=== PATIENT | male | born 1945 | race Caucasian/White ===

== ENCOUNTER 2017-06-11 00:34 | Emergency (ER) | payer MEDICARE, OTHER ==
[~2017-06-11] VITALS: Ht 182.9 cm; Wt 74.4 kg
[~2017-06-11 00:34] MED LIST: ASPI325 PO; ASPI81EC PO; ATEN25 PO; AZIT250 PO; DIGO.25; FISH1000 PO; FLEC100 PO; HYDACE5 PO; METO25ER PO; MULTI VIT PO; MULVITMINF PO; OXYACE5T PO; PRED20 PO; PROM25 PO; VITAMIN D PO; WARF5 PO; WARF7.5
[2017-06-11] MEDS ORDERED: WARF6 PO (02:20)
[2017-06-11] MEDS ORDERED: CYCL10 PO (03:37)
== END 2017-06-11 03:51 | disposition home or self-care (01) ==
LOC: ER 00:34
DX: M43.6 Torticollis (principal); Z88.1 Allergy status to other antibiotic agents; Z79.01 Long term (current) use of anticoagulants; Z79.899 Other long term (current) drug therapy; I48.91 Unspecified atrial fibrillation; Z87.891 Personal history of nicotine dependence
CPT/HCPCS: 96372; 99283; J1885

== ENCOUNTER 2017-10-13 11:22 | Emergency (ER) | payer MEDICARE, OTHER ==
[~2017-10-13] VITALS: Ht 182.9 cm; Wt 73.9 kg
[~2017-10-13 11:22] MED LIST changes: +CYCL10 PO; +WARF6 PO
[2017-10-13] MEDS ORDERED: Bactrim Ds Tab1 EACH PO (13:01)
== END 2017-10-13 13:16 | disposition home or self-care (01) ==
LOC: ER 11:22
DX: S61.213A Laceration without foreign body of left middle finger without damage to nail, initial encounter (principal); M54.2 Cervicalgia; W45.8XXA Other foreign body or object entering through skin, initial encounter; Z88.1 Allergy status to other antibiotic agents; Z79.899 Other long term (current) drug therapy; Z79.01 Long term (current) use of anticoagulants; I48.91 Unspecified atrial fibrillation; Z87.891 Personal history of nicotine dependence
CPT/HCPCS: 12002; 73140; 99283

== ENCOUNTER 2018-09-24 05:46 | Day surgery (SDC) | payer MEDICARE, OTHER ==
[~2018-09-24] VITALS: Ht 182.9 cm; Wt 76.7 kg
[~2018-09-24 05:46] MED LIST changes: +ASTAXANTHIN4 MG PO; +BLUEBERRY PO; +Bactrim Ds Tab1 EACH PO; +CHOL10002 PO; +CLON.5 PO; +COQ1050 MG PO; +Cod Liver Oil1 EAC2 PO; +FOLI400; +Glucosamine Co1 EAC1 PO; +IRON PO; +LUTEIN PO; +MAGNESIUM L-THREONAT PO; +VITAMIN B122500 MC1; +Vitamin B-650 MG; +[UNRECOGNIZED DRUG - OTHER]; +[UNRECOGNIZED DRUG - OTHER]; +[UNRECOGNIZED DRUG - OTHER]; +[UNRECOGNIZED DRUG - OTHER] PO
--- NOTE | 2018-09-24 07:18 | NUR ---
UP TO BATHROOM AT THIS TIME.
--- NOTE | 2018-09-24 10:39 | NUR ---
REPORT FROM ANUJ WALLS RN. PT INCISIONS X3 CDI. AT BEDSIDE.
--- NOTE | 2018-09-24 11:51 | NUR ---
PT AMBULATED AND PRACTICED RELAXING BREATHING TECHNIQUES WITH IMPROVEMENT IN BELCHING AND SP02 AT 96%. ABLE YO DRESS SELF WITH MINIMAL ASSIST. FELT COMFORTABLE TAKING PATIENT HOME. 02 SAT REMAINED GREATER THAN 95% AFTER WALKING. Patient up to Ambulate independently. Gait steady. Patient States Post-Procedure ride home has been arranged. Discharge instructions reviewed with patient. Patient verbalizes understanding. Copy given to patient to take home. Discharged via wheelchair to private car for ride home.ALL BELONGIGNS RETUNED TO PATIENT.
== END 2018-09-24 23:24 | disposition home or self-care (01) ==
LOC: ORSCMMR 05:46 → ORD 07:30 → ORSCMMR 23:24
PROVIDERS: Surgery
PROC: 0YU54JZ Supplement Right Inguinal Region with Synthetic Substitute, Percutaneous Endoscopic Approach (ICD-10-PCS; principal; 2018-09-24 07:30)
PROC: 8E0W4CZ Robotic Assisted Procedure of Trunk Region, Percutaneous Endoscopic Approach (ICD-10-PCS; principal; 2018-09-24 07:30)
PROC: 0WQF4ZZ Repair Abdominal Wall, Percutaneous Endoscopic Approach (ICD-10-PCS; principal; 2018-09-24 07:30)
DX: K40.90 Unilateral inguinal hernia, without obstruction or gangrene, not specified as recurrent (principal); K43.2 Incisional hernia without obstruction or gangrene; I48.91 Unspecified atrial fibrillation; Z79.01 Long term (current) use of anticoagulants; G47.33 Obstructive sleep apnea (adult) (pediatric); N18.9 Chronic kidney disease, unspecified; Z79.899 Other long term (current) drug therapy
CPT/HCPCS: 49650; 49654; S2900; A9270-GY; C1781; J0690; J1100; J2405; J2704; J2710; J2765; J3010; J7120

== ENCOUNTER 2021-04-12 05:49 | Day surgery (SDC) | payer MEDICARE, OTHER ==
[~2021-04-12] VITALS: Ht 180.3 cm; Wt 77.6 kg
[~2021-04-12 05:49] MED LIST changes: +POTCHL20ER PO; +TORS10 PO
--- NOTE | 2021-04-12 06:53 | NUR ---
Ambulatory in Day Surgery. History, Chart, Medications and Allergies reviewed before start of procedure. Lungs clear T/O to Auscultation. Patient confirms NPO status and agrees with scheduled surgery. Pre-Op teaching done. Pt verbalizes understanding. Patient States Post-Procedure ride home has been arranged.
--- NOTE | 2021-04-12 08:31 | NUR ---
04/12/21 0831 Ita Dial NO SPECIMEN PER DR. HERSON M.D. Chris DIAL RN
--- NOTE | 2021-04-12 09:47 | NUR ---
Dressing to procedure site clean, dry, intact with no visible drainage, swelling, erythema or bruising noted.
--- NOTE | 2021-04-12 09:47 | NUR ---
PT TOLERATING PO FLUIDS
--- NOTE | 2021-04-12 10:42 | NUR ---
PT STATES PAIN IS AT A 7 WITHOUT MOVEMENT. THIS IS TOLERABLE FOR THE PT
--- NOTE | 2021-04-12 11:09 | NUR ---
Discharge instructions reviewed with patient. Patient verbalizes understanding. Copy given to patient to take home. Discharged via wheelchair to private car for ride home.
== END 2021-04-12 11:11 | disposition home or self-care (01) ==
LOC: ORSCMMR 05:49 → ORD 07:30 → ORSCMMR 07:30
PROVIDERS: Surgery
PROC: 0WUF0JZ Supplement Abdominal Wall with Synthetic Substitute, Open Approach (ICD-10-PCS; principal; 2021-04-12 07:30)
DX: K42.9 Umbilical hernia without obstruction or gangrene (principal); I48.92 Unspecified atrial flutter; Z79.01 Long term (current) use of anticoagulants; Z95.0 Presence of cardiac pacemaker; Z87.891 Personal history of nicotine dependence; G47.33 Obstructive sleep apnea (adult) (pediatric); N18.9 Chronic kidney disease, unspecified; Z79.899 Other long term (current) drug therapy
CPT/HCPCS: A9270; C1781; J0171; J0690; J1100; J2250; J2370; J2405; J2704; J2710; J3010; J7120

== ENCOUNTER → 2023-05-08 | Outpatient (CLI) | payer MEDICARE, OTHER ==
[2023-05-08 19:50] LABS: Bilirubin, Total 0.9 mg/dL (0.1-1.0); Bun/Creatinine Ratio 26.9 (12.0-20.0); Calcium, Blood 8.8 mg/dL (8.5-10.1); Creatinine, Blood 1.45 mg/dL (0.60-1.20); Globulin, Blood 3.9 g/dL (2.2-4.0); Potassium, Blood 3.9 mmol/L (3.5-5.5); Total Protein, Blood 7.9 g/dL (6.4-8.2)
== END | disposition home or self-care (01) ==
LOC: LAB 18:21 → LAB SHORT 18:21
PROVIDERS: Family Medicine
DX: R74.01 Elevation of levels of liver transaminase levels (principal)
CPT/HCPCS: 36415; 80053

== ENCOUNTER → 2023-05-15 | Outpatient (CLI) | payer MEDICARE, OTHER ==
[2023-05-18 20:07] LABS: A/G RATIO 1.5 (1.2-2.2); CALCIUM, SERUM 9.7 mg/dL (8.6-10.2); CREATININE, SERUM 1.4 mg/dL (0.76-1.27); POTASSIUM, SERUM 4.3 mmol/L (3.5-5.2); PROTEIN, TOTAL, SERUM 7.6 g/dL (6.0-8.5)
== END | disposition home or self-care (01) ==
LOC: LAB 16:37 → LAB SHORT 16:37
PROVIDERS: Family Medicine
DX: R94.4 Abnormal results of kidney function studies (principal)
CPT/HCPCS: 80053

== ENCOUNTER → 2023-06-19 | Outpatient (CLI) | payer MEDICARE, OTHER ==
[2023-06-19 13:53] LABS: Creatinine Urine 47.9 mg/dL (27.00-270.00); Microalbumin, Urine Quant. 76.6 mg/L (0.000-20.000); Protein, Urine Quantitative 16.6 mg/dL (0.0-11.9)
== END | disposition home or self-care (01) ==
LOC: LAB SHORT 07:30 → LAB 07:30
PROVIDERS: Internal Medicine Nephrology
DX: N18.30 Chronic kidney disease, stage 3 unspecified (principal); D63.1 Anemia in chronic kidney disease; N25.81 Secondary hyperparathyroidism of renal origin; E55.9 Vitamin D deficiency, unspecified; E29.1 Testicular hypofunction; D50.9 Iron deficiency anemia, unspecified; D51.8 Other vitamin B12 deficiency anemias; R76.9 Abnormal immunological finding in serum, unspecified; R94.5 Abnormal results of liver function studies; R94.6 Abnormal results of thyroid function studies
CPT/HCPCS: 81050; 82043; 82570; 84156

== ENCOUNTER → 2023-10-26 | Outpatient (CLI) | payer MEDICARE, OTHER ==
[2023-10-26 14:17] LABS: Creatinine Urine 52.3 mg/dL (27.00-270.00); Protein, Urine Quantitative 12.4 mg/dL (0.0-11.9)
[2023-10-26 14:35] LABS: Microalbumin, Urine Quant. 48.6 mg/L (0.000-20.000)
== END | disposition home or self-care (01) ==
LOC: LAB SHORT 07:30 → LAB 07:30
PROVIDERS: Internal Medicine Nephrology
DX: N18.30 Chronic kidney disease, stage 3 unspecified (principal); D63.1 Anemia in chronic kidney disease; N25.81 Secondary hyperparathyroidism of renal origin; E55.9 Vitamin D deficiency, unspecified; E78.00 Pure hypercholesterolemia, unspecified; N40.1 Benign prostatic hyperplasia with lower urinary tract symptoms; R76.9 Abnormal immunological finding in serum, unspecified; R94.5 Abnormal results of liver function studies; R94.6 Abnormal results of thyroid function studies
CPT/HCPCS: 81050; 82043; 82570; 84156

== ENCOUNTER 2024-04-24 12:54 | Inpatient (IN) | payer MEDICARE ==
[~2024-04-24] VITALS: Ht 182.9 cm; Wt 84.2 kg
[2024-04-24] MEDS ORDERED: Furosemide 10 MG/ML 4ML Vial IV ONE (13:20)
[2024-04-24 13:38] LABS: BASOPHILS ABSOLUTE AUTO 0.08 K/mm3 (0.00-0.23); BASOPHILS PERCENT AUTO 2 % (0-2); EOSINOPHILS ABSOLUTE AUTO 0.15 K/mm3 (0.00-0.68); EOSINOPHILS PERCENT AUTO 3 % (0-6); Hematocrit 39.7 % (37.0-53.0); Hemoglobin 13.5 g/dL (13.5-17.5); IMMATURE GRAN ABSOLUTE AUTO 0.01 K/mm3 (0.00-0.10); IMMATURE GRAN PERCENT AUTO 0 % (0-1); LYMPHOCYTES ABSOLUTE AUTO 0.74 K/mm3 (0.84-5.20); LYMPHOCYTES PERCENT AUTO 14 % (21-46); MONOCYTES ABSOLUTE AUTO 0.75 K/mm3 (0.16-1.47); MONOCYTES PERCENT AUTO 15 % (4-13); Mean Corpuscular HGB 33.3 pg (26.0-34.0); Mean Corpuscular Volume 98 fL (80-100); Mean Platelet Volume 10.1 fL (9.1-12.4); NEUTROPHILS ABSOLUTE AUTO 3.44 K/mm3 (1.96-9.15); NEUTROPHILS PERCENT AUTO 67 % (41-73); Platelet Count 180 K/mm3 (150-400); RDW Coefficient Variation 16.5 % (11.7-14.2); RDW Standard Deviation 59.4 fL (35.1-46.3); Red Blood Cell Count 4.05 M/mm3 (4.30-5.90); White Blood Cell Count 5.17 K/mm3 (4.00-11.30)
[2024-04-24 13:55] LABS: Calcium, Blood 9.3 mg/dL (8.5-10.1); Creatinine, Blood 1.56 mg/dL (0.60-1.20); Potassium, Blood 3.5 mmol/L (3.5-5.5)
[2024-04-24] MEDS ORDERED: METO25 PO (15:29)
[2024-04-24] MEDS ORDERED: TORSE20 PO (15:30)
[2024-04-24] MEDS ORDERED: TORSE20 (15:30)
[2024-04-24] MEDS ORDERED: KLOR-CON M1010 MEQ PO (15:32)
[2024-04-24] MEDS ORDERED: TRELEGY ELLIPT1 EACH (15:33)
[2024-04-24] MEDS ORDERED: FLU VACC TS2024-25(6MOS UP)/PF 45 MCG/0.5 ML SYRINGE IM SCH (15:50)
[2024-04-24 16:30] LABS: International Normalized Ratio 1.2; Prothrombin Time Results 12.7 Sec (9.7-11.5)
[2024-04-24] MEDS ORDERED: MELA3 PO (16:48)
[2024-04-24] MEDS ORDERED: ELIQUIS5 M2 PO (16:49)
[2024-04-24] MEDS ORDERED: ASCO500 PO (16:50)
[2024-04-24] MEDS ORDERED: ClonazePAM 0.5 MG Tab PO PRN (16:50)
[2024-04-24] MEDS ORDERED: Vitamin D PO (16:52)
[2024-04-24] MEDS ORDERED: Potassium Chloride 20 MEQ TabCR PO SCH (17:00)
[2024-04-24] MEDS ORDERED: N-Acetylcysteine 600 MG CAP PO SCH (18:00)
[2024-04-24] MEDS ORDERED: Bumetanide 0.25 MG/ML 4ML ViaL IV SCH ×2 (18:00)
[2024-04-24 18:04] VITALS: BP 127/79
[2024-04-24 19:11] VITALS: BP 117/62
[2024-04-24] MEDS ORDERED: Melatonin 3 MG Tab PO SCH (21:00)
[2024-04-24] MEDS ORDERED: Saline Nasal Spray 45 ML SCH (21:00)
[2024-04-24] MEDS ORDERED: Metoprolol Tartrate 25 MG Tab PO SCH (21:00)
[2024-04-24] MEDS ORDERED: Apixaban 5 MG Tab PO SCH (21:00)
[2024-04-25 01:54] VITALS: BP 115/65
[2024-04-25 04:35] LABS: Hematocrit 39.7 % (37.0-53.0); Hemoglobin 13.4 g/dL (13.5-17.5); Mean Corpuscular HGB 33.2 pg (26.0-34.0); Mean Corpuscular HGB Conc 33.8 g/dL (31.5-36.5); Mean Corpuscular Volume 98 fL (80-100); Mean Platelet Volume 10.4 fL (9.1-12.4); Platelet Count 184 K/mm3 (150-400); RDW Coefficient Variation 16.7 % (11.7-14.2); RDW Standard Deviation 60.6 fL (35.1-46.3); Red Blood Cell Count 4.04 M/mm3 (4.30-5.90); White Blood Cell Count 5.83 K/mm3 (4.00-11.30)
[2024-04-25 04:45] LABS: Magnesium, Blood 2.7 mg/dL (1.6-2.4)
[2024-04-25 04:46] LABS: Bun/Creatinine Ratio 28.9 (12.0-20.0); Creatinine, Blood 1.59 mg/dL (0.60-1.20); Phosphorus, Blood 3.5 mg/dL (2.5-4.9); Potassium, Blood 3.3 mmol/L (3.5-5.5)
--- NOTE | 2024-04-25 06:29 | NUR ---
STAFF RESEARCH ASSOCIATE SUMMARY: PT ADMITTED FOR ACUTE ON CHRONIC CHF EXACERBATION ON 04/24/24. CODE STATUS: DNR. PT A&O X4. MAKES NEEDS KNOWN TO STAFF. INDEPENDENT WITH CARE IN ROOM. CONTINENT OF BOWEL / BLADDER. STRICT I'S AND O'S. WEARS CPAP AT HS, BUT HAS REFUSED HOSPITAL'S EQUIPMENT. PT SIGNED A REFUSAL FOR CONTINUOUS OXIMETRY MONITORING PER RT. PT HAS PACEMAKER. TELMETRY IN PLACE; PACED AT 81, BUT HAS FLUCTUATED TO AFIB. PT DENIES CHEST PAIN / CHEST PRESSURE. PT IS TACHYPNIC AT REST / LYING DOWN. EDUCATED ON BREATHING TECHNIQUES AND ANXIETY. PT MEDICATED X1 WITH KLONOPIN PER EMAR AT START OF SHIFT; EFFECTIVE. MEDS WHOLE WITH WATER. PT DID C/O LOW BACK PAIN AT BEGINNING OF SHIFT. REPOSITIONING AND KLONOPIN EFFECTIVE. CARES ONGOING ORDERED. CALL LIGHT IN REACH.
[2024-04-25 08:00] VITALS: BP 121/70
[2024-04-25] MEDS ORDERED: Ascorbic Acid 500 MG Tab PO SCH (09:00)
[2024-04-25] MEDS ORDERED: Cholecalciferol 1000 Unit Tablet (=25MCG) PO SCH (09:00)
[2024-04-25] MEDS ORDERED: Apixaban 5 MG Tab PO SCH (09:00)
[2024-04-25] MEDS ORDERED: FLUTICASONE FUROATE INH SCH (09:00)
[2024-04-25] MEDS ORDERED: VILANTEROL INH SCH (09:00)
[2024-04-25] MEDS ORDERED: UMECLIDINIUM INH SCH (09:00)
[2024-04-25 15:38] VITALS: BP 127/80
[2024-04-25 19:01] VITALS: BP 125/70
--- NOTE | 2024-04-25 19:03 | NUR ---
SHIFT SUMMARY PT IS A&OX4. PT ADMITTED DUE TO ACUTE ON CHRONIC DIASTOLIC CHF. PT HAS SOME SOB ON AMBULATION. PT ON 2L O2 ON VIA N/C. HUMIDIFER ON O2. PT SPO2 IS 94%. PT EATS ADEQUATE. PALLIATIVE CARE CONSULTED. VSS, PT RECEIVING DIURETICS. PT WAS AT BEDSIDE DURING SHIFT. RT CAME TO GIVE RESPIRATORY TREATMENT. CONT PULSE OX ON PT. PT ON TELE, NO EVENTS REPORTED. BED IN LOWEST POSITBLE POSITION, CALL LIGHT IN REACH,
[2024-04-26 03:15] VITALS: BP 121/67
[2024-04-26 05:39] LABS: Albumin, Blood 3.4 g/dL (3.4-5.0); Anion Gap 13 mmol/L (3-11); Blood Urea Nitrogen 44 mg/dL (8-24); Bun/Creatinine Ratio 29.9 (12.0-20.0); CO2, Blood 28 mmol/L (21-32); Calcium, Blood 9.2 mg/dL (8.5-10.1); Chloride, Blood 103 mmol/L (98-108); Creatinine, Blood 1.47 mg/dL (0.60-1.20); Glomerular Filtration Rate 48 (60-); Glucose, Blood 84 mg/dL (70-99); Magnesium, Blood 2.6 mg/dL (1.6-2.4); Phosphorus, Blood 3.3 mg/dL (2.5-4.9); Potassium, Blood 2.9 mmol/L (3.5-5.5); Sodium, Blood 141 mmol/L (136-145)
--- NOTE | 2024-04-26 06:16 | NUR ---
SHIFT SUMMARY: Pt is admitted for acute on chronic CHF and is a DNR. is alert and able to make needs known. ADLs have been IND during shift. Denies pain or discomfort when asked. Hany reports v-paced in the 60s with a bundle branch. Opted not to wear his home cpap due to congestion and only having nasal pillows. When offered to have a mask provided it was declined. Wore 2lpm of O2 via NC to maintain spo2 greater than 88% for most of the night. About the last 2 hours of the shift did opt to remove the O2 after RT checked on him and stated his sats were doing fine and he more than likely did not need the O2. O2 stats for the rest of shift only went below 88% with activity. He was able to purse lip breath to recover after about 90sec to 2 min.
[2024-04-26 07:11] VITALS: BP 121/73
[2024-04-26] MEDS ORDERED: Potassium Chloride 20 MEQ TabCR PO STA (08:18)
[2024-04-26] MEDS ORDERED: [UNRECOGNIZED DRUG - OTHER] (11:09)
[2024-04-26] MEDS ORDERED: SPIR25 PO (11:10)
[2024-04-26] MEDS ORDERED: JARDIANCE10 MG PO (11:10)
--- NOTE | 2024-04-26 16:38 | NUR ---
MET WITH PATIENT TO DISCUSS GOALS, HOSPICE, METHODS TO MAKIING DECISIONS. PROVIDED ADVANCED DIRECTIVE. ENCOURAGED HIM TO PUT HIS POLST ON HIS FRIDGE FOR EASY VIEWING IF EMS IS CALLED. ENCOURAGED OPEN CONVERSATIONS WITH . PLACED P[facility]AT[facility] CON[facility]ULT WITH [facility]. PROVIDED COPY OF HARD CHOICES FOR LOVING PEOPLE. ENCOURAGED HIM TO HAVE DISCUSSION ABOUT HIS HEALTH WISHES AND DISCUSSIONS ABOUT HIS WIFES HEALTH WISHES.
--- NOTE | 2024-04-26 16:47 | NUR ---
DISCHARGE NOTE PT A&OX4. PT ADMITTED DUE TO AUTE ON CHRONIC DIASTOLIC CHF. PT REPORTS NO PAIN. PT REPORTS SOME SOB ON EXERTION. PT MET WITH PALLIATIVE CARE TODAY. PT MET WITH RESPIRATORY THERAPY. PT GOT HOME O2 EVAL ORDER AND GOT EQUIPMENT FROM [facility], [place] TO GO HOME ON 1L OF O2. EDUCATED PT ON DISCHARGE INSTRUCTIONS AND MEDS. PT TOOK BELONGINGS. PT ESCORTED TO LOBBY BY WHEELCHAIR BY [address] SUPERVISOR. PT REPORTS WILL FOLLOW UP WITH PCP IN A WEEK.
== END 2024-04-26 15:29 | disposition home health service (06) | DRG 291 ==
LOC: ER 12:54 → MEDS 15:46
PROVIDERS: Emergency Medicine; ADMIT Internal Medicine
DX: I13.0 Hypertensive heart and chronic kidney disease with heart failure and stage 1 through stage 4 chronic kidney disease, or unspecified chronic kidney disease (principal); I50.33 Acute on chronic diastolic (congestive) heart failure; J96.01 Acute respiratory failure with hypoxia; E87.1 Hypo-osmolality and hyponatremia; I48.19 Other persistent atrial fibrillation; I48.92 Unspecified atrial flutter; I07.1 Rheumatic tricuspid insufficiency; E87.6 Hypokalemia; N18.30 Chronic kidney disease, stage 3 unspecified; J44.9 Chronic obstructive pulmonary disease, unspecified; G47.30 Sleep apnea, unspecified; I27.20 Pulmonary hypertension, unspecified; F41.9 Anxiety disorder, unspecified; Z95.2 Presence of prosthetic heart valve; Z79.01 Long term (current) use of anticoagulants; Z88.5 Allergy status to narcotic agent; Z88.8 Allergy status to other drugs, medicaments and biological substances; Z95.0 Presence of cardiac pacemaker; Z98.890 Other specified postprocedural states; Z87.891 Personal history of nicotine dependence
CPT/HCPCS: 36415; 71045; 71260; 80048; 80069; 83735; 83880; 84100; 84443; 84484; 85025; 85027; 85379; 85610; 85730; 93005; 93010; 93306; 94640; 94664; 94761; 94762; 96374-59; 97110; 97162; 97165; 97530; 99285-25; A9270; J1940; Q9967

== ENCOUNTER → 2024-05-19 | Outpatient (CLI) | payer MEDICARE ==
[~2024-05-19] MED LIST changes: +ASCO500 PO; +ELIQUIS5 M2 PO; +JARDIANCE10 MG PO; +KLOR-CON M1010 MEQ PO; +MELA3 PO; +METO25 PO; +SPIR25 PO; +TORSE20; +TORSE20 PO; +TRELEGY ELLIPT1 EACH; +Vitamin D PO; +[UNRECOGNIZED DRUG - OTHER]
[2024-05-19 16:55] LABS: BASOPHILS ABSOLUTE AUTO 0.07 K/mm3 (0.00-0.23); BASOPHILS PERCENT AUTO 1 % (0-2); EOSINOPHILS ABSOLUTE AUTO 0.15 K/mm3 (0.00-0.68); EOSINOPHILS PERCENT AUTO 3 % (0-6); Hematocrit 38.9 % (37.0-53.0); Hemoglobin 13.1 g/dL (13.5-17.5); IMMATURE GRAN ABSOLUTE AUTO 0.02 K/mm3 (0.00-0.10); IMMATURE GRAN PERCENT AUTO 0 % (0-1); LYMPHOCYTES ABSOLUTE AUTO 0.64 K/mm3 (0.84-5.20); LYMPHOCYTES PERCENT AUTO 11 % (21-46); MONOCYTES ABSOLUTE AUTO 0.77 K/mm3 (0.16-1.47); MONOCYTES PERCENT AUTO 13 % (4-13); Mean Corpuscular HGB 33.3 pg (26.0-34.0); Mean Corpuscular Volume 99 fL (80-100); Mean Platelet Volume 11.2 fL (9.1-12.4); NEUTROPHILS ABSOLUTE AUTO 4.19 K/mm3 (1.96-9.15); NEUTROPHILS PERCENT AUTO 72 % (41-73); Platelet Count 178 K/mm3 (150-400); RDW Coefficient Variation 15.5 % (11.7-14.2); Red Blood Cell Count 3.93 M/mm3 (4.30-5.90); White Blood Cell Count 5.84 K/mm3 (4.00-11.30)
[2024-05-19 16:57] LABS: Mean Corpuscular HGB Conc 33.7 g/dL (31.5-36.5)
[2024-05-19 17:15] LABS: Percent Saturation 18.9 % (20.0-50.0)
[2024-05-19 17:21] LABS: Albumin, Blood 3.8 g/dL (3.4-5.0); Albumin/Globulin Ratio 0.9 (0.8-1.8); Bilirubin, Total 1.9 mg/dL (0.1-1.0); Bun/Creatinine Ratio 29.4 (12.0-20.0); Calcium, Blood 9.5 mg/dL (8.5-10.1); Creatinine, Blood 1.6 mg/dL (0.60-1.20); Globulin, Blood 4.2 g/dL (2.2-4.0); Potassium, Blood 4.2 mmol/L (3.5-5.5)
== END | disposition home or self-care (01) ==
LOC: LAB SHORT 13:20 → LAB 13:20
PROVIDERS: Nurse Practitioner Family
DX: D64.9 Anemia, unspecified (principal); I50.42 Chronic combined systolic (congestive) and diastolic (congestive) heart failure
CPT/HCPCS: 36415; 80053; 82728; 83540; 83550; 85025

== ENCOUNTER 2024-06-30 09:07 | Emergency (ER) | payer MEDICARE ==
[~2024-06-30] VITALS: Ht 185.4 cm; Wt 81.7 kg
[2024-06-30] MEDS ORDERED: Oxymetazoline 0.05% Nasal Relief Spray 15mL BTL ONE (09:25)
[2024-06-30] MEDS ORDERED: AFRIN15 M6 (10:29)
[2024-06-30 10:39] VITALS: BP 129/71
== END 2024-06-30 10:40 | disposition home or self-care (01) ==
LOC: ER 09:07
DX: R04.0 Epistaxis (principal); E11.9 Type 2 diabetes mellitus without complications; I48.91 Unspecified atrial fibrillation; Z87.891 Personal history of nicotine dependence; Z79.899 Other long term (current) drug therapy; Z88.1 Allergy status to other antibiotic agents; Z88.5 Allergy status to narcotic agent
CPT/HCPCS: 99283; A9270